=== PATIENT | female | born 1950 | race Caucasian/White ===

== ENCOUNTER 2020-12-01 05:35 | Day surgery (SDC) | payer MEDICARE ==
[2020-11-28 09:03] LABS: BASOPHILS % (AUTO) 0 % (0-1); EOSINOPHILS % (AUTO) 3 % (1-7); LYMPHOCYTES % (AUTO) 24 % (22-44); MEAN CORPUSCULAR HEMOGLOBIN 31.6 pg (27.0-34.8); MEAN CORPUSCULAR HGB CONC 33.8 g/dL (32.4-35.8); MEAN PLATELET VOLUME 8.1 fL (7.4-10.4); MONOCYTES % (AUTO) 9 % (2-9); NEUTROPHILS % (AUTO) 64 % (42-75); PLATELET COUNT 190 x10^3/uL (130-400); RED BLOOD COUNT 4.89 x10^6/uL (3.82-5.3); RED CELL DISTRIBUTION WIDTH 13.8 % (9.6-15.2)
[2020-11-28 09:10] LABS: MD NO
[2020-11-28 09:11] LABS: ANION GAP 5 mmol/L (5-15); CALCIUM 8.9 mg/dL (8.5-10.1); CHLORIDE 108 mmol/L (98-107); CREATININE 0.62 mg/dL (0.55-1.02)
[2020-11-28 09:23] LABS: INTERNATIONAL NORMALIZED RATIO 1.02 (0.93-1.1); PROTHROMBIN TIME 10.9 Seconds (9.6-11.5)
[~2020-12-01] VITALS: Ht 166.4 cm; Wt 62.0 kg
[~2020-12-01 05:35] MED LIST: ASPI81TA45 PO; ATOR40TA78 PO; CALC1CAP8 PO; JOINT MOVEMENT PO; L.AC1CAP6 PO; LEVO75TA5 PO; METAMUCIL; MULT-658 PO; OMEP-110 PO; OXYB5TAB10 PO; UBIQ100C2 PO
[2020-12-01] MEDS ORDERED: LEVOTHYROXINE 75 MCG TABLET PO SCH (06:00)
[2020-12-01] MEDS ORDERED: KETOROLAC 60 MG/2 ML ONE (06:17)
[2020-12-01] MEDS ORDERED: TRANEXAMIC ACID 100 MG/ML, 10ML ONE ×2 (06:17)
[2020-12-01] MEDS ORDERED: ROPIvacaine/PF 0.5%, 20 ML ONE (06:18)
[2020-12-01] MEDS ORDERED: EPINEPHRINE 1 MG/ML, 1ML ONE (06:19)
[2020-12-01] MEDS ORDERED: ROPIvacaine/PF 0.5%, 30 ML ONE (06:19)
[2020-12-01] MEDS ORDERED: SODIUM CHLORIDE 0.9% 50 ML ONE (06:19)
[2020-12-01] MEDS ORDERED: VANCOMYCIN 1,000 MG ONE (06:19)
[2020-12-01] MEDS ORDERED: LACTATED RINGERS 1,000 ML IV SCH (06:30)
[2020-12-01] MEDS ORDERED: ACETAMINOPHEN 500 MG TABLET PO ONE (06:30)
[2020-12-01] MEDS ORDERED: CHLORHEXIDINE 15 ML UDC PO ONE (06:30)
[2020-12-01] MEDS ORDERED: GABAPENTIN 300 MG CAPSULE PO ONE (06:30)
[2020-12-01] MEDS ORDERED: FENTANYL PF 100 MCG/2ML ONE ×2 (06:30→08:38)
[2020-12-01] MEDS ORDERED: MIDAZOLAM 1 MG/ML, 2ML ONE (06:31)
[2020-12-01] MEDS ORDERED: EPHEDRINE 50 MG/ML, 1ML ONE (06:57)
[2020-12-01] MEDS ORDERED: HYDROcodone/APAP 5/325 TABLET PO PRN (07:00)
[2020-12-01] MEDS ORDERED: ONDANSETRON 4 MG TABLET PO PRN (07:00)
[2020-12-01] MEDS ORDERED: ZOLPIDEM 5MG TABLET PO PRN (07:00)
[2020-12-01] MEDS ORDERED: SENNA/DOCUSATE TABLET PO PRN (07:00)
[2020-12-01] MEDS ORDERED: DIPHENHYDRAMINE 50 MG CAPSULE PO PRN (07:00)
[2020-12-01] MEDS ORDERED: OXYcodone IR 5MG TABLET PO PRN (07:00)
[2020-12-01] MEDS ORDERED: BISACODYL 10 MG SUPP PR PRN (07:00)
[2020-12-01] MEDS ORDERED: ACETAMINOPHEN 650 MG/20.3 ML UDC PO PRN (07:00)
[2020-12-01] MEDS ORDERED: NS + 20MEQ KCL 1,000 ML IV SCH (07:00)
[2020-12-01] MEDS ORDERED: MAGNESIUM HYDROXIDE 8%, 30ML UDC PO PRN (07:00)
[2020-12-01] MEDS ORDERED: HYDROmorphone 1 MG/ML, 1ML INJ IV PRN (07:00)
[2020-12-01] MEDS ORDERED: ONDANSETRON 2MG/ML, 2ML IV PRN (07:00)
[2020-12-01] MEDS ORDERED: PROMETHAZINE 25 MG/ML, 1ML IVPush PRN (07:30)
[2020-12-01] MEDS ORDERED: HYDROmorphone 1 MG/ML, 1ML INJ IVPush PRN (07:30)
[2020-12-01] MEDS ORDERED: OXYcodone 5 MG/5 ML ORAL.SOL UDC PO PRN (07:30)
[2020-12-01] MEDS ORDERED: ONDANSETRON 2MG/ML, 2ML IVPush PRN (07:30)
[2020-12-01] MEDS ORDERED: METHOCARBAMOL 1,000 MG in DEXTROSE 5% 100 ML IV PRN (07:30)
[2020-12-01] MEDS ORDERED: MEPERIDINE/PF 25MG/0.5ML IVPush PRN (07:30)
[2020-12-01] MEDS ORDERED: HYDROcodone/APAP 7.5-325MG/15ML UDC PO PRN (07:30)
[2020-12-01] MEDS ORDERED: ONDANSETRON 2MG/ML, 2ML ONE (07:38)
[2020-12-01] MEDS ORDERED: GLYCOPYRROLATE 0.2MG/1ML, 5ML ONE (07:38)
[2020-12-01] MEDS ORDERED: CEFAZOLIN 1,000 MG ONE (07:38)
[2020-12-01] MEDS ORDERED: PROPOFOL 10 MG/ML, 20ML ONE (07:38)
[2020-12-01] MEDS ORDERED: NEOSTIGMINE 1 MG/ML, 10ML ONE (07:38)
[2020-12-01] MEDS ORDERED: SUCCINYLCHOLINE 20 MG/ML, 10ML ONE (07:38)
[2020-12-01] MEDS ORDERED: DEXAMETHASONE 4 MG/ML, 1ML ONE (07:38)
[2020-12-01] MEDS ORDERED: ROCURONIUM 10MG/ML,5ML ONE (07:38)
[2020-12-01] MEDS ORDERED: MEPERIDINE/PF 25MG/ML,1ML ONE (08:38)
[2020-12-01] MEDS ORDERED: OXYcodone 5 MG/5 ML ORAL.SOL UDC ONE (08:39)
[2020-12-01] MEDS: FENTANYL PF 100 MCG/2ML IV PRN ×3 (08:52→09:27)
[2020-12-01] MEDS ORDERED: DOCUSATE 100 MG CAPSULE PO SCH (09:00)
[2020-12-01] MEDS ORDERED: DIPHENHYDRAMINE 25 MG CAPSULE PO PRN (14:00)
[2020-12-01] MEDS ORDERED: CEFAZOLIN PMX 2GM/50ML 50 ML IVPB SCH (17:00)
[2020-12-01] MEDS ORDERED: ASPIRIN 81 MG TABLET EC PO SCH (18:00)
[2020-12-02] MEDS ORDERED: DEXAMETHASONE 4 MG/ML, 1ML IVPush SCH (06:00)
== END 2020-12-01 12:20 | disposition home or self-care (01) ==
LOC: OUT 05:35
PROVIDERS: ATTEND Orthopaedic Surgery
DX: M17.0 Bilateral primary osteoarthritis of knee (principal); M25.761 Osteophyte, right knee; G89.18 Other acute postprocedural pain; E03.9 Hypothyroidism, unspecified; K21.9 Gastro-esophageal reflux disease without esophagitis; E07.9 Disorder of thyroid, unspecified; Z20.822 Contact with and (suspected) exposure to COVID-19; Z79.01 Long term (current) use of anticoagulants; Z79.890 Hormone replacement therapy; Z79.899 Other long term (current) drug therapy; Z88.0 Allergy status to penicillin; Z88.2 Allergy status to sulfonamides; Z88.5 Allergy status to narcotic agent; Z82.61 Family history of arthritis; Z82.49 Family history of ischemic heart disease and other diseases of the circulatory system
CPT/HCPCS: 27447; 36415; 64447; 80048; 83036; 85025; 85610; 85730; 87081; 87147; 93005; 97162; C1713; C1776; J0171; J0330; J0690; J1100; J1885; J2175; J2250; J2405; J2704; J2710; J2795; J3010; J3370; J7120; U0003